=== PATIENT | male | born 1960 | race Caucasian/White ===

== ENCOUNTER 2017-03-09 11:44 | Observation (INO) | payer OTHER ==
[2017-03-09] MEDS ORDERED: ASPIRIN 81 MG CHEWABLE TAB PO ONE (12:01)
--- NOTE | 2017-03-09 12:06 | CPEKG ---
Heart Rate: 59 RR Interval: 1017 P-R Interval: 176 QRSD Interval: 118 QT Interval: 420 QTC Interval: 416 P [place]: 56 QRS [place]: -52 T Wave [place]: 20 EKG Severity - ABNORMAL ECG - EKG Impression: SINUS RHYTHM EKG Impression: INCOMPLETE RBBB AND LAFB Electronically Signed By: Katie Caputo 09-Mar-2017 15:33:43
[2017-03-09 12:33] LABS: ANION GAP 11 mEq/L (8-16); CALCIUM 9.2 mg/dL (8.5-10.4); CARBON DIOXIDE 24 mEq/l (22-31); CHLORIDE 102 mEq/L (97-110); CREATININE 0.8 mg/dL (0.7-1.3); GLOMERULAR FILTRATION RATE > 60; GLUCOSE 265 mg/dL (70-100); INR 0.96 (0.83-1.16); POTASSIUM 4.6 mEq/L (3.5-5.2); PROTIME(PATIENT) 12.7 SEC (12.0-15.0); SODIUM 137 mEq/L (134-144)
[2017-03-09 12:36] LABS: % IMMATURE GRANULYOCYTES 0.4 % (0.0-1.1); ABSOLUTE IMMATURE GRANULOCYTES 0.02 10^3/uL (0.00-0.10); ADD DIFF? NO; ADD MORPH? NO; ADD SCAN? NO; ATYPICAL LYMPHOCYTE FLAG 60 (0-99); FRAGMENT RBC FLAG 0 (0-99); HEMATOCRIT 42.8 % (40.0-51.0); HEMOGLOBIN 14.8 g/dL (13.7-17.5); LEFT SHIFT FLG 0 (0-99); LIPEMIA HEMOLYSIS FLAG 90 (0-99); MEAN CELL HEMOGLOBIN 28.1 pg (27.9-34.1); MEAN CELL HEMOGLOBIN CONCENTR. 34.6 g/dL (32.4-36.7); MEAN CELL VOLUME 81.4 fL (81.5-99.8); MEAN PLATELET VOLUME 10.5 fL (8.7-11.7); PLATELET CLUMPS FLAG 0 (0-99); PLATELET COUNT 242 10^3/uL (150-400); RED BLOOD CELL COUNT 5.26 10^6/uL (4.40-6.38); RED CELL DISTRIBUTION WIDTH 13.5 % (11.5-15.2)
[2017-03-09 12:45] LABS: CREATINE KINASE-MB FRACTION 1.39 ng/mL (0-3.19); TROPONIN I < 0.012 ng/mL (0-0.034)
--- NOTE | 2017-03-09 13:20 | EDPHY ---
H & P Time Seen by Provider: 03/09/17 12:01 HPI/ROS: HPI Chest pain. 56-year-old male by private vehicle. He has been in [place] about a month. He is from the [place]. He has a history of type 2 diabetes. He reports that early Friday morning at 2:00 a.m. he woke with what he describes as left-sided anterior mid chest pain described as a deep ache. He reports this persisted through the night and gradually got better in the morning and faded away Friday. He reports that he then woke up with the same pain again last night at 2:00 a.m. and it again persisted but never fully went away. He rates it as a 2 to 3/10 at this time. He denies any radiation of the pain. No associated shortness of breath or cough. He reports that it is worse when she is laying down. It is better when he is sitting upright. He denies any previous history of coronary artery disease. ROS: Constitutional: No fever, no chills. No weakness. Eyes: No discharge. No changes in vision. ENT: No sore throat. No nasal congestion or rhinorrhea. Respiratory: No cough. No shortness of breath. Cardiac: As above, no palpitations. Gastrointestinal: No abdominal pain, no vomiting, no diarrhea. Genitourinary: No hematuria. No dysuria or increased frequency with urination. Musculoskeletal: No back pain. No neck pain. No myalgias or arthralgias. Skin: No rashes. Neurological: No headache. No focal weakness or altered sensation. Past medical history: Type 2 diabetes. He takes metformin. Social history: Nonsmoker. No methamphetamine or cocaine abuse. Denies IV drugs or street drugs. Drinks alcohol socially. Physical Exam: General Appearance: Alert, no distress. This patient is responding to questions appropriately and in full sentences. This patient appears well- hydrated and well-nourished. Eyes: Pupils equal and round no pallor or injection. No lid edema, erythema or injection. Respiratory: There are no retractions, lungs are clear to auscultation with good air movement bilaterally. Cardiovascular: Regular rate and rhythm. No murmur. Gastrointestinal: Abdomen is soft and nontender, no masses, bowel sounds normal. No focal tenderness at McBurney's point. No Gautam sign. Neurological: Motor sensory function is grossly intact. Cranial nerves are normal. Gait is normal. Skin: Warm and dry, no rashes. Musculoskeletal: Neck is supple and nontender. Extremities are symmetrical. All joints range without pain or impingement. Psychiatric: No agitation. No depression. Database: EKG: EKG time is 12:04 p.m.; EKG shows a narrow complex normal sinus rhythm with a ventricular rate of 59. Incomplete right bundle branch block noted, left anterior fascicular block noted. The HI, QRS, QT intervals are within normal limits. There are no ST-T wave changes indicative of ischemic or injury pattern. No evidence of right heart strain. Interpreted by me. Imaging: Chest x-ray AP portable; the cardiac mediastinal silhouette is unremarkable. No evidence of infiltrate or pneumothorax. No acute cardiopulmonary disease process noted. Interpreted by me. Procedures: Emergency department course: IV placed. He was placed on a monitor. EKG performed and reviewed by myself. He was given 324 mg of chewed aspirin. He reports continued low level chest discomfort in the emergency department rated as a 2/10. 1:20 p.m., patient re-evaluated. Resting comfortably at this time. He reports continued mild chest discomfort. Results of his EKG, chest x-ray and blood work were discussed with him. Plan for observation admission serial enzyme testing and provocative testing discussed. He consents. 1:25 p.m., spoke with hospitalist. Patient accepted under the care of Dr. Ashley. Patient's remaining emergency department course under my care was uneventful. He was admitted to the hospitalist service in stable condition. Differential Diagnosis: The differential diagnosis on this patient includes but is not limited to acute coronary syndrome, myocarditis, pericarditis. Pulmonary embolism, aortic dissection, pneumonia, pneumothorax unlikely. This represents a partial list of diagnoses considered. These considerations are based on history, physical exam, past history, reassessment and diagnostic testing. Smoking Status: Former smoker Constitutional: Initial Vital Signs Temperature (C) 36.6 C 03/09/17 11:49 Heart Rate 67 03/09/17 11:49 Respiratory Rate 16 03/09/17 11:49 Blood Pressure 137/97 H 03/09/17 11:49 O2 Sat (%) 96 03/09/17 11:49 O2 Delivery Mode Room Air Allergies/Adverse Reactions: adhesive tape Allergy (Verified 03/09/17 11:48) Home Medications: Medication Instructions Recorded Metformin HCl 03/09/17 Medical Decision Making - Data Points Laboratory Results: Laboratory Results 03/09/17 12:10 03/09/17 12:10 03/09/17 03/09/17 03/09/17 12:10 12:10 12:10 WBC 5.29 10^3/uL 10^3/uL (3.80-9.50) RBC 5.26 10^6/uL 10^6/uL (4.40-6.38) Hgb 14.8 g/dL g/dL (13.7-17.5) Hct 42.8 % % (40.0-51.0) MCV 81.4 fL L fL (81.5-99.8) MCH 28.1 pg pg (27.9-34.1) MCHC 34.6 g/dL g/dL (32.4-36.7) RDW 13.5 % % (11.5-15.2) Plt Count 242 10^3/uL 10^3/uL (150-400) MPV 10.5 fL fL (8.7-11.7) Neut % (Auto) 61.9 % % (39.3-74.2) Lymph % (Auto) 24.0 % % (15.0-45.0) [place] % (Auto) 9.5 % % (4.5-13.0) Eos % (Auto) 3.6 % % (0.6-7.6) Baso % (Auto) 0.6 % % (0.3-1.7) Nucleat RBC Rel Count 0.0 % % (0.0-0.2) Absolute Neuts (auto) 3.28 10^3/uL 10^3/uL (1.70-6.50) Absolute Lymphs (auto) 1.27 10^3/uL 10^3/uL (1.00-3.00) Absolute Monos (auto) 0.50 10^3/uL 10^3/uL (0.30-0.80) Absolute Eos (auto) 0.19 10^3/uL 10^3/uL (0.03-0.40) Absolute Basos (auto) 0.03 10^3/uL 10^3/uL (0.02-0.10) Absolute Nucleated RBC 0.00 10^3/uL 10^3/uL (0-0.01) Immature Gran % 0.4 % % (0.0-1.1) Immature Gran # 0.02 10^3/uL 10^3/uL (0.00-0.10) PT 12.7 SEC SEC (12.0-15.0) INR 0.96 (0.83-1.16) APTT 25.0 SEC SEC (23.0-38.0) Sodium 137 mEq/L mEq/L (134-144) Potassium 4.6 mEq/L mEq/L (3.5-5.2) Chloride 102 mEq/L mEq/L (97-110) Carbon Dioxide 24 mEq/l mEq/l (22-31) Anion Gap 11 mEq/L mEq/L (8-16) BUN 14 mg/dL mg/dL (7-23) Creatinine 0.8 mg/dL mg/dL (0.7-1.3) Estimated GFR > 60 Glucose 265 mg/dL H mg/dL (70-100) Calcium 9.2 mg/dL mg/dL (8.5-10.4) Creatine Kinase 63 IU/L IU/L (0-224) CK-MB (CK-2) Fraction 1.39 ng/mL ng/mL (0-3.19) Troponin I < 0.012 ng/mL ng/mL (0-0.034) Medications Given: Discontinued Medications Aspirin (Aspirin) 324 mg PO EDNOW ONE Stop: 03/09/17 12:02 Last Admin: 03/09/17 12:39 Dose: 324 mg Departure - Departure Disposition: [facility] Inpatient Acute Clinical Impression: Chest pain, Hyperglycemia Referrals: NONE *PRIMARY CARE P,. [Primary Care Provider] - As per Instructions
[2017-03-09] MEDS ORDERED: KETOROLAC 30 MG/1 ML SDV IVP ONE (14:47)
[2017-03-09] MEDS ORDERED: D50W 25 GM/50 ML SYR IVP PRN (14:49)
[2017-03-09] MEDS ORDERED: ONDANSETRON 4 MG/2 ML VIAL IVP PRN (14:50)
[2017-03-09] MEDS: INSULIN REGULAR HUMAN 100 UNIT/ML SC SCH ×2 (15:27→21:45)
[2017-03-09] MEDS: metFORMIN HCL 500 MG TAB PO SCH ×2 (15:28→15:35)
--- NOTE | 2017-03-09 15:31 | GHP ---
[f rep st] HISTORY AND PHYSICAL DATE OF ADMISSION: 03/09/2017 CHIEF COMPLAINT: Chest pain. HISTORY OF PRESENT ILLNESS: The patient is a 56-year-old male, who went to a elarme Friday night and felt absolutely fine, but then suddenly at 2 o'clock in the morning was awoken from sleep with s evere chest pain. It felt like he got punched in the chest. He was awake for about an hour and the n did fall back asleep. He did notice the chest pain was worse when he lied down. Next morning, he bought some antacids and thought maybe the chest pain improved. Over the past 2 days, however, thi s chest pain has continued to come back repeatedly. He had it again severely last night. Often ons et is at rest. It is left-sided, nonpleuritic, no shortness of breath. He is very active at [employer], works out 2-3 hours per day, lots of yoga and never has any chest pain with it. PAST MEDICAL HISTORY: 1. Diabetes type 2. 2. Left shoulder impingement. MEDICATIONS: Please see computer record for full detailed list. ALLERGIES: Adhesive tape. SOCIAL HISTORY: No smoking. No alcohol. He [place] in the [place]. He is here on holiday, although [facility] he has retired, he does stay for months at a time, currently staying with friends. REVIEW OF SYSTEMS: Complete review of systems was obtained. Review of systems is negative regardin g constitutional, HEENT, GI, pulmonary, cardiovascular, , hematology, skin, musculoskeletal, endoc rine, psych. Pertinent positives and negatives as in HPI. FAMILY HISTORY: Father at age 91 and was noted to have an abdominal aortic aneurysm, although that was not his cause of . Mother at age 85 without any cardiac disease. PHYSICAL EXAMINATION: GENERAL: Well-developed, well-nourished male, in no distress. VITAL SIGNS: Temperature is 36.6, pulse 67, blood pressure 137/97, saturating 96% on room air. EYES: Normal co njunctivae. Pupils react to light. ENT: Normal ears and nose. Hearing intact. No loose teeth. Oropharynx moist. NECK: Trachea midline. No thyromegaly. CHEST: Normal effort. LUNGS: Clear t o auscultation bilaterally. CARDIOVASCULAR: Regular rhythm. No murmur. No extremity edema. ABDO MEN: Soft, nontender. No hepatosplenomegaly. SKIN: Warm, dry, intact without rash. MUSCULOSKELE ASHLEY: No cyanosis or clubbing. Strength 5/5 upper and lower extremities. NEUROLOGIC: Cranial nerv es intact. Normal sensation to light touch. PSYCHIATRIC: Alert and oriented x3. Normal affect. Normal judgment. Normal memory. LABORATORY DATA: White count 5.9, hematocrit 42.8, platelets 242. Sodium 137, potassium 4.6, chlor joe 102, bicarb 24, BUN 14, creatinine 0.8, glucose 265. Troponins negative. INR is 0.96. EKG viewed by me. My personal interpretation is normal sinus rhythm, incomplete right bundle branch block. Chest x-ray is negative. ASSESSMENT/PLAN: 1. Chest pain. His initial troponin and EKG are negative. His risk factor is diabetes. Chest mallory n history, however, is atypical and a cardiac workup is negative. If the cardiac workup is negative , my suspicion is this is musculoskeletal. We will give a one-time dose of IV Toradol. Will follow serial troponins and EKGs. Start him on a daily aspirin and check a lipid panel. His baseline EKG is a little abnormal, and I am not sure it would be interpretable on a standard exercise treadmill test, so we will order a treadmill with nuclear medicine images in the a.m. 2. Diabetes type 2. Continue metformin and check glucose. Follow glucose checks. CODE STATUS: Full. ADMISSION STATUS: Will admit under observation. Anticipate discharge home tomorrow if cardiac work up is negative. DVT PROPHYLAXIS: He is low risk. /[id number]/MODL
[2017-03-09] MEDS: ACETAMINOPHEN 325 MG TAB PO PRN (20:20)
[2017-03-09] MEDS: HYDROmorphONE/DILAUDID 1 MG/ML SYR IVP PRN (21:46)
[2017-03-10 01:43] LABS: CHOLESTEROL 146 mg/dL (140-220); CHOLESTEROL/HDL RATIO 4.42 RATIO (1.00-4.97); HIGH DENSITY LIPOPROTEIN 33 mg/dL (40-65); LDL/HDL RATIO 2.55 RATIO (1.00-3.64); LOW DENSITY LIPOPROTEIN 84 mg/dL (80-100); NON-HIGH DENSITY LIPOPROTEIN 113 mg/dL (90-129); TRIGLYCERIDE 146 mg/dL (40-150); VERY LOW DENSITY LIPOPROTEINS 29 mg/dL (8-25)
[2017-03-10] MEDS: HYDROmorphONE/DILAUDID 1 MG/ML SYR IVP PRN (03:51)
[2017-03-10] MEDS: ACETAMINOPHEN 325 MG TAB PO PRN (04:00)
[2017-03-10] MEDS ORDERED: NITROGLYCERIN 0.4 MG BTL SL PRN (08:30)
--- NOTE | 2017-03-10 08:37 | CPEKG ---
Heart Rate: 69 RR Interval: 870 P-R Interval: 176 QRSD Interval: 108 QT Interval: 412 QTC Interval: 442 P Reading: 55 QRS Reading: -62 T Wave Reading: 9 EKG Severity - ABNORMAL ECG - EKG Impression: SINUS RHYTHM EKG Impression: LEFT ANTERIOR FASCICULAR BLOCK Electronically Signed By: Farhat Leach 10-Mar-2017 12:21:40
[2017-03-10] MEDS: INSULIN REGULAR HUMAN 100 UNIT/ML SC SCH (08:49)
[2017-03-10] MEDS ORDERED: ASPIRIN EC 325 MG TAB PO SCH (09:00)
[2017-03-10] MEDS ORDERED: REGADENOSON 0.4 MG/5 ML SYR IVP ONE (10:09)
[2017-03-10] MEDS: metFORMIN HCL 500 MG TAB PO SCH (10:38)
[2017-03-10 11:39] VITALS: BP 128/82; PULSE 66; RESP 18; TEMP 98.4; O2SAT 93
--- NOTE | 2017-03-10 17:34 | CPR ---
[f rep st] NONINVASIVE CARDIAC PROCEDURE REPORT DATE OF PROCEDURE: 03/10/2017 REASON FOR TEST: Chest pain. FINDINGS: Resting EKG shows a sinus rhythm with an incomplete right bundle branch block. Resting b lood pressure 118/70, oxygen saturation 90%. LEXISCAN: Lexiscan was injected rapidly at 10:53:30 followed by saline flush. Cardiolite was then injected followed by saline flush per protocol. He did become flushed with stomach discomfort. Pea k heart rate 92, peak blood pressure 110/60, oxygen saturation 98%. RECOVERY: He did spontaneously recover with no EKG changes throughout the test. Blood pressure at rest 114/60, heart rate 80, oxygen saturation 98%. There were no EKG changes or arrhythmias noted d uring the test. Caffeine did help to alleviate his symptoms. At this time, he currently is stable for imaging. /[id number]/MODL
--- NOTE | 2017-03-10 17:54 | GDS ---
[f rep st] DISCHARGE SUMMARY ALL DIAGNOSES: 1. Chest pain, unclear etiology. 2. Diabetes mellitus with mild hyperglycemia. HOSPITAL COURSE: A 56-year-old man, who was admitted with chest pain. D-dimer was negative. Tropo nins were negative. His EKG was not remarkable for ischemia. He underwent a nuclear stress test, w hich was negative for ischemia or infarct. In terms of the etiology, I think that this is most like ly costochondritis. I would also consider pericarditis given mild J-point elevation on his EKG and his description of it. He has had improvement with NSAIDs, which would treat both of these. I have recommended that he continue with as-needed ibuprofen for now. If this does not resolve in a week, I have given him a prescription to fill for colchicine to treat him empirically for pericarditis. He understands all this. He is discharged in stable condition. /[id number]/MODL
== END 2017-03-10 14:17 | disposition home or self-care (01) ==
LOC: F2W 14:15
PROVIDERS: ADMIT Internal Medicine; ATTEND Internal Medicine
DX: R07.9 Chest pain, unspecified (principal); E11.65 Type 2 diabetes mellitus with hyperglycemia
CPT/HCPCS: 71010; 78452; 93005; 93017; A9500; G0378; J1170; J1815; J1885; J2405; J2785

== ENCOUNTER 2017-03-17 08:32 | Emergency (ER) | payer OTHER ==
[2017-03-17 08:36] VITALS: BP 147/97; PULSE 65; RESP 18; TEMP 98.4; O2SAT 97
--- NOTE | 2017-03-17 09:17 | EDPHY ---
H & P Stated Complaint: rash to l chest/cp had full cardiac workup last week now with rash/?shingle HPI/ROS: CHIEF COMPLAINT: Rash, chest wall pain HISTORY OF PRESENT ILLNESS: Patient complains of painful rash to the left side of his chest. This is underneath the nipple on travels back to the left mid axillary line. Been present for 2 days. It was preceded by several days of pain. It is moderately to severely tender to palpation. No fever chills. No exertional pain. No shortness of breath. No rash anywhere else on his person. He was recently seen for chest pain last week with a full cardiac workup that was reportedly negative. He feels that this pain is completely reproducible from the rash. No other associated complaints or modifying factors REVIEW OF SYSTEMS: Ten systems reviewed and are negative unless otherwise noted in the HPI EXAMINATION General Appearance: Alert, no distress HEENT: Pupils equal arm active light. There is no rash or lesion to the face, nose around the eye. EOMs intact Cardiovascular: Regular rhythm. No murmur. Pulses normal throughout. Brisk cap refill Neurological: A&O, sensory symmetric, strength symmetric Skin: Warm and dry. Urticarial and vesicular rash to the left breast underneath the nipple. This tracks back the T4 dermatome to the left mid axillary line. Consistent with zoster. No lesions anywhere else on his person. Extremities: Nontender, no pedal edema Psychiatric: Mood and affect normal DIFFERENTIAL DIAGNOSES: Including but not limited to zoster, varicella, herpetic rash, cellulitis, urticaria MDM: 9:11 a.m. Left-sided chest wall pain due to shingles. Patient did have varicella as a child. This is in the T4 dermatome. There is no involvement of the face or any aspect of the trigeminal facial distribution. His chest pain is completely reproducible with rash. Additionally, he has had a recent cardiac workup here. Treat him with antiviral and pain medication. He is returning back to the [place] in 8 days. I recommend that he contact his prescribing physician due to his type 2 diabetes with blood sugars that have been greater than 180 lately. Recommend that he maintain a blood sugar of 180 or less. Return to the ER for any rash on the face, surrounding the eye, on the tip of the nose. He is comfortable this plan and discharged home stable condition. ED Precautions: Worsening pain. Erythema, edema, cyanosis, pallor, paresthesia or anesthesia. SUPERVISION: This patient was independently evaluated without direct examination by the attending physician. Case was discussed with attending physician. Source: Patient Exam Limitations: No limitations - Personal History Current Tetanus/Diphtheria Vaccine: Yes - Medical/Surgical History Hx Asthma: No Hx Chronic Respiratory Disease: No Hx Diabetes: Yes Hx Cardiac Disease: No Hx Renal Disease: No Hx Cirrhosis: No Hx Alcoholism: No Hx HIV/AIDS: No Hx Splenectomy or Spleen Trauma: No Other PMH: DM. lt shoulder pain - Social History Smoking Status: Former smoker Constitutional: Initial Vital Signs Temperature (C) 98.4 F 03/17/17 08:33 Heart Rate 65 03/17/17 08:33 Respiratory Rate 18 03/17/17 08:33 Blood Pressure 147/97 H 03/17/17 08:33 O2 Sat (%) 97 03/17/17 08:33 O2 Delivery Mode Room Air Allergies/Adverse Reactions: adhesive tape Allergy (Verified 03/17/17 08:33) Home Medications: Medication Instructions Recorded Ibuprofen [Motrin (*)] 400 mg PO PRN PRN 03/09/17 metFORMIN HCL [Metformin HCl] 1,000 mg PO BID 03/09/17 Colchicine [Colchicine (*)] 0.6 mg PO BID #60 tab 03/10/17 Valacyclovir HCl [Valtrex] 1,000 mg PO TID #21 tab 03/17/17 oxyCODONE HCL/ACETAMINOPHEN 1 each PO Q4-6PRN PRN #19 tablet 03/17/17 [Percocet 5-325 mg Tablet] Departure - Departure Disposition: Home, Routine, Self-Care Clinical Impression: Herpes zoster infection of thoracic region Shingles Qualifiers: Herpes zoster complications: without complications Qualified Code(s): B02.9 - Zoster without complications Condition: Good Instructions: Shingles (ED) Additional Instructions: 1. Medications as prescribed to completion 2. Follow up with primary care physician and discuss tighter management of blood glucose 3. Return here for worsening pain, rash on the face, nose or eyes Referrals: OUT,OF COUNTRY [Other] - As per Instructions Rm Hobbs MD [[facility] [place] Primary Care Provider] - As per Instructions Prescriptions: oxyCODONE HCL/ACETAMINOPHEN [Percocet 5-325 mg Tablet] 1 each PO Q4-6PRN PRN # 19 tablet PRN Reason: Pain, Breakthrough Valacyclovir HCl [Valtrex] 1,000 mg PO TID #21 tab
== END 2017-03-17 09:33 | disposition home or self-care (01) ==
DX: B02.9 Zoster without complications (principal); E11.9 Type 2 diabetes mellitus without complications; Z79.84 Long term (current) use of oral hypoglycemic drugs; Z87.891 Personal history of nicotine dependence